=== PATIENT | female | born 1985 | race Caucasian/White ===

== ENCOUNTER 2020-11-17 06:33 | Day surgery (SDC) | payer MEDICAID, SELFPAY ==
[~2020-11-17] VITALS: Ht 152.4 cm; Wt 64.4 kg
[2020-11-17] MEDS ORDERED: SIMETHICONE 40 MG/0.6 ML ML ONE (07:09)
[2020-11-17] MEDS ORDERED: fentaNYL CITRATE/PF 100 MCG/2 ML AMP ONE (07:09)
[2020-11-17] MEDS ORDERED: MIDAZOLAM HCL 5 MG/5 ML VIAL ONE (07:10)
[2020-11-17 07:24] LABS: HCG,QUAL RESULT NEGATIVE (NEGATIVE)
[2020-11-17] MEDS: fentaNYL CITRATE/PF 100 MCG/2 ML AMP IVP ONE (08:13)
[2020-11-17] MEDS: MIDAZOLAM HCL 5 MG/5 ML VIAL IVP ONE ×2 (08:13→08:15)
[2020-11-17 14:00] VITALS: BP_SYST 95
== END 2020-11-17 14:00 | disposition home or self-care (01) ==
LOC: SMU 06:33 → SDS 06:33
PROVIDERS: ATTEND Internal Medicine
DX: Z12.11 Encounter for screening for malignant neoplasm of colon (principal); K52.9 Noninfective gastroenteritis and colitis, unspecified; K51.90 Ulcerative colitis, unspecified, without complications; A04.72 Enterocolitis due to Clostridium difficile, not specified as recurrent; M85.80 Other specified disorders of bone density and structure, unspecified site; Q96.9 Turner's syndrome, unspecified; Z79.899 Other long term (current) drug therapy
CPT/HCPCS: 36415; 45380; 84703; 87426; 88305; 99152; G0378; J2250; J3010

== ENCOUNTER 2022-06-21 06:35 | Day surgery (SDC) | payer MEDICAID ==
[~2022-06-21] VITALS: Ht 152.4 cm; Wt 63.5 kg
[2022-06-21] MEDS ORDERED: fentaNYL CITRATE/PF 100 MCG/2 ML AMP ONE (07:30)
[2022-06-21] MEDS: MIDAZOLAM HCL 5 MG/5 ML VIAL ONE ×3 (07:47→07:51)
[2022-06-21] MEDS ORDERED: DIPHENHYDRAMINE INJ 50 MG/ML VIAL ONE (07:57)
[2022-06-21 11:51] VITALS: BP_SYST 121
== END 2022-06-21 09:10 | disposition home or self-care (01) ==
LOC: SDS 06:35 → SMU 06:38 → SDS 09:10
PROVIDERS: ATTEND Internal Medicine
DX: Z12.11 Encounter for screening for malignant neoplasm of colon (principal); K63.5 Polyp of colon; K51.90 Ulcerative colitis, unspecified, without complications; K52.9 Noninfective gastroenteritis and colitis, unspecified; Z79.899 Other long term (current) drug therapy; Z20.822 Contact with and (suspected) exposure to COVID-19
CPT/HCPCS: 36415; 45380; 45385; 88305; 99152; U0003; G0378; J1200; J2250; J3010; 45384

== ENCOUNTER 2022-09-20 06:17 | Day surgery (SDC) | payer MEDICAID ==
[~2022-09-20] VITALS: Ht 152.4 cm; Wt 64.0 kg
[2022-09-20] MEDS: fentaNYL CITRATE/PF 100 MCG/2 ML AMP ONE ×3 (08:00→08:08)
[2022-09-20] MEDS: MIDAZOLAM HCL 5 MG/5 ML VIAL ONE ×4 (08:00→08:12)
[2022-09-20] MEDS ORDERED: DIPHENHYDRAMINE INJ 50 MG/ML VIAL ONE (08:06)
[2022-09-20 14:46] VITALS: BP_SYST 105
== END 2022-09-20 09:52 | disposition home or self-care (01) ==
LOC: SDS 06:17 → SMU 06:17 → SDS 09:52
PROVIDERS: ATTEND Internal Medicine
DX: Z09 Encounter for follow-up examination after completed treatment for conditions other than malignant neoplasm (principal); K51.90 Ulcerative colitis, unspecified, without complications; Z20.822 Contact with and (suspected) exposure to COVID-19; Z88.0 Allergy status to penicillin
CPT/HCPCS: 36415; 45380; 88305; 99152; U0003; G0378; J1200; J2250; J3010

== ENCOUNTER 2023-02-18 06:00 | Day surgery (SDC) | payer MEDICAID ==
[~2023-02-18] VITALS: Ht 154.9 cm; Wt 67.1 kg
[2023-02-18] MEDS ORDERED: MIDAZOLAM HCL 5 MG/5 ML VIAL ONE (07:11)
[2023-02-18] MEDS ORDERED: SIMETHICONE 40 MG/0.6 ML ML ONE (07:11)
[2023-02-18] MEDS ORDERED: fentaNYL CITRATE/PF 100 MCG/2 ML AMP ONE (07:11)
[2023-02-18 13:56] VITALS: BP_SYST 109
== END 2023-02-18 09:14 | disposition home or self-care (01) ==
LOC: SDS 06:00 → SMU 06:00 → SDS 09:14
PROVIDERS: ATTEND Internal Medicine
DX: Z12.11 Encounter for screening for malignant neoplasm of colon (principal); K51.90 Ulcerative colitis, unspecified, without complications; Z88.0 Allergy status to penicillin; Z79.899 Other long term (current) drug therapy
CPT/HCPCS: 45380; 88305; 99152; G0378; J2250; J3010

== ENCOUNTER 2023-08-06 07:05 | Day surgery (SDC) | payer MEDICAID ==
[~2023-08-06] VITALS: Ht 152.4 cm; Wt 67.1 kg
[2023-08-06 08:29] VITALS: O2SAT 99
[2023-08-06] MEDS ORDERED: MIDAZOLAM HCL 5 MG/5 ML VIAL ONE (09:18)
[2023-08-06] MEDS ORDERED: fentaNYL CITRATE/PF 100 MCG/2 ML AMP ONE (09:18)
[2023-08-06 13:19] VITALS: BP_SYST 119; PULSE 95; RESP 16
== END 2023-08-06 11:04 | disposition home or self-care (01) ==
LOC: SDS 07:05 → SMU 07:06 → SDS 11:04
PROVIDERS: ATTEND Internal Medicine
DX: Z09 Encounter for follow-up examination after completed treatment for conditions other than malignant neoplasm (principal); K63.5 Polyp of colon; K51.90 Ulcerative colitis, unspecified, without complications; Z88.0 Allergy status to penicillin; Z79.899 Other long term (current) drug therapy
CPT/HCPCS: 45380; 45385; 99152; 88305; 99153; G0378; J2250; J3010; 45384

== ENCOUNTER 2024-02-27 07:08 | Day surgery (SDC) | payer MEDICAID ==
[~2024-02-27] VITALS: Ht 154.9 cm; Wt 67.1 kg
[2024-02-27] MEDS ORDERED: SIMETHICONE 40 MG/0.6 ML ML ONE (07:21)
[2024-02-27] MEDS ORDERED: fentaNYL CITRATE/PF 100 MCG/2 ML AMP ONE (07:22)
[2024-02-27] MEDS ORDERED: MIDAZOLAM HCL 5 MG/5 ML VIAL ONE (07:22)
[2024-02-27 09:18] LABS: SERUM HCG (QUALITATIVE) NEGATIVE (NEGATIVE)
[2024-02-27 11:51] VITALS: O2SAT 97
[2024-02-27 13:24] VITALS: BP_SYST 119; PULSE 81; RESP 17
== END 2024-02-27 11:21 | disposition home or self-care (01) ==
LOC: SDS 07:08 → SMU 07:10 → SDS 11:21
PROVIDERS: ATTEND Internal Medicine
DX: K51.90 Ulcerative colitis, unspecified, without complications (principal); K51.419 Inflammatory polyps of colon with unspecified complications; K63.89 Other specified diseases of intestine; Z98.890 Other specified postprocedural states; Z88.0 Allergy status to penicillin
CPT/HCPCS: 45380; 45385; 99152; 84703; 36415; 88305; 99153; G0378; J2250; J3010; 45384